=== PATIENT | female | born 1955 | race African-American/Black ===

== ENCOUNTER 2018-06-08 16:12 | Outpatient (REF) | payer MEDICAID, SELFPAY ==
[2018-06-08 19:38] LABS: COMMENT (LAB VIEW ONLY) 128.08 mg/dL; Microalb ug/mg Crea 9.1 ug/mg Cr
== END 2018-06-08 16:32 ==
LOC: NCHCN 16:12
PROVIDERS: PCP Family Medicine; Visit Provider Family Medicine
DX: E11.9 Type 2 diabetes mellitus without complications (principal)
CPT/HCPCS: 82043; 82570